=== PATIENT | female | born 1930 | race Caucasian/White ===

== ENCOUNTER 2016-11-28 07:51 | Inpatient (IN) | payer MEDICARE, BC ==
[2016-11-07 10:37] VITALS: Ht 152.4 cm; Wt 59.4 kg
[2016-11-07 10:59] VITALS: BP_SYST 134; RESP 20; TEMP 98.2
[~2016-11-28] VITALS: Ht 152.4 cm; Wt 59.4 kg
[2016-11-28] VITALS (19 sets, daily range): BP systolic 91–159; RESP 12–20; TEMP 97.3–99.1
[2016-11-28] MEDS ORDERED: ROPIVACAINE 0.5% 139 MG, EPINEPHrine 1:1,000 0.2 MG, KETOROLAC INJ 30 MG, MORPHINE 10 MG SUBQ ONE ×4 (07:55)
[2016-11-28] MEDS ORDERED: CEFAZOLIN 2,000 MG in SODIUM CHLORIDE 0.9% 100 ML IV ONE (07:55)
[2016-11-28] MEDS ORDERED: LIDOCAINE 1% BUFFERED 1 ML SYR INTRADERM PRN (08:25)
[2016-11-28] MEDS ORDERED: MIDAZOLAM 2 MG/2 ML INJ IV ONE (08:25)
[2016-11-28] MEDS ORDERED: GLYCOPYRROLATE 0.2 MG/ML VIAL IV ONE ×2 (08:25→13:44)
[2016-11-28] MEDS ORDERED: SODIUM CHLORIDE 0.9% 1,000 ML IV SCH (08:25)
[2016-11-28] MEDS ORDERED: ONDANSETRON 4 MG VIAL IV PRN ×2 (09:50→11:40)
[2016-11-28] MEDS ORDERED: MORPHINE 4 MG/ML SYR IV PRN ×2 (09:50→11:40)
[2016-11-28] MEDS ORDERED: DILAUDID 1 MG/ML AMP IV PRN (09:50)
[2016-11-28] MEDS ORDERED: MORPHINE 2 MG/ML SYR IV PRN ×2 (09:50→11:40)
[2016-11-28] MEDS ORDERED: OXYCODONE 5 MG TAB PO PRN (09:50)
[2016-11-28] MEDS ORDERED: MEPERIDINE 25 MG/ML IV PRN (09:50)
[2016-11-28] MEDS ORDERED: KETOROLAC 30 MG/ML VIAL IV PRN (11:40)
[2016-11-28] MEDS ORDERED: TEMAZEPAM 15 MG CAP PO PRN (11:40)
[2016-11-28] MEDS ORDERED: DIPHENHYDRAMINE 25 MG CAP PO PRN (11:40)
[2016-11-28] MEDS: MAG HYDROX 30 ML UDC PO SCH (13:13)
[2016-11-28] MEDS: POLYETHYLENE GLYCOL 17 GM PACKET PO SCH (13:13)
[2016-11-28] MEDS: DOCUSATE SOD 100 MG CAP PO SCH ×2 (13:13→21:26)
[2016-11-28] MEDS: SENNA 8.6 MG TAB PO SCH ×2 (13:14→21:25)
[2016-11-28] MEDS: LACT RINGERS 1,000 ML IV SCH (13:36)
[2016-11-28] MEDS ORDERED: BACITRACIN 50,000 UNITS INJ IRRIG ONE (13:39)
[2016-11-28] MEDS ORDERED: NEOSTIGMINE 10 MG/10 ML VIAL IV ONE (13:44)
[2016-11-28] MEDS ORDERED: FENTANYL 100 MCG/2 ML AMP IV ONE (13:44)
[2016-11-28] MEDS ORDERED: ACETAMINOPHEN 1,000 MG/100 ML IV ONE (13:44)
[2016-11-28] MEDS ORDERED: PROPOFOL 20 ML PER ML IV ONE (13:44)
[2016-11-28] MEDS ORDERED: LIDOCAINE 2% SYR 5 ML IV ONE (13:44)
[2016-11-28] MEDS ORDERED: ROCURONIUM 50 MG VIAL IV ONE (13:44)
[2016-11-28] MEDS ORDERED: DILAUDID 1 MG/ML AMP IV ONE (13:44)
[2016-11-28] MEDS: CEFAZOLIN 2,000 MG in SODIUM CHLORIDE 0.9% 100 ML IV SCH ×2 (16:28→21:27)
[2016-11-28] MEDS ORDERED: DEXTROSE 50% SYRINGE 50 ML IV PRN (17:30)
[2016-11-28] MEDS ORDERED: GLUCAGON 1 MG VIAL IM PRN (17:30)
[2016-11-28] MEDS ORDERED: DOCUSATE SOD 100 MG CAP PO SCH (21:00)
[2016-11-28] MEDS: FAMOTIDINE 20 MG INJ IV SCH (21:26)
[2016-11-29] VITALS (7 sets, daily range): BP systolic 126–148; RESP 16–20; TEMP 97.2–99.2
[2016-11-29] MEDS: LACT RINGERS 1,000 ML IV SCH (02:36)
[2016-11-29] MEDS: KETOROLAC 15 MG/ML VIAL IV PRN ×3 (02:37→23:01)
[2016-11-29] MEDS: CEFAZOLIN 2,000 MG in SODIUM CHLORIDE 0.9% 100 ML IV SCH ×2 (03:33→12:12)
[2016-11-29] MEDS: ENOXAPARIN 40 MG/0.4 ML SYR SUBQ SCH (05:55)
[2016-11-29] MEDS: SENNA 8.6 MG TAB PO SCH ×2 (08:50→20:05)
[2016-11-29] MEDS: DOCUSATE SOD 100 MG CAP PO SCH ×2 (08:50→20:05)
[2016-11-29] MEDS: MAG HYDROX 30 ML UDC PO SCH ×2 (08:51→20:04)
[2016-11-29] MEDS: POLYETHYLENE GLYCOL 17 GM PACKET PO SCH (08:51)
[2016-11-29] MEDS: FAMOTIDINE 20 MG INJ IV SCH ×2 (08:51→20:04)
[2016-11-29] MEDS ORDERED: OXYCODONE/APAP 5/325 TAB PO PRN (08:55)
[2016-11-29] MEDS ORDERED: ERGOCALCIFEROL 50,000 UNITS (1.25 MG) CAP PO SCH (09:00)
[2016-11-29] MEDS: CYANOCOBALAMIN 1000 MCG/ML VIAL IM SCH (12:12)
[2016-11-29] MEDS ORDERED: FLEET ENEMA 132 ML BTL RECTAL PRN (12:35)
[2016-11-29] MEDS ORDERED: BISACODYL 10 MG SUPP RECTAL PRN (12:35)
[2016-11-29] MEDS: ACETAMINOPHEN 325 MG TAB PO PRN ×2 (13:45→20:06)
[2016-11-30 04:26] VITALS: BP_SYST 127; TEMP 98.6
[2016-11-30 04:27] VITALS: RESP 18
[2016-11-30] MEDS: ENOXAPARIN 40 MG/0.4 ML SYR SUBQ SCH (06:09)
[2016-11-30 07:25] VITALS: BP_SYST 138; RESP 18; TEMP 98.7
[2016-11-30] MEDS: MAG HYDROX 30 ML UDC PO SCH ×2 (08:00→09:12)
[2016-11-30] MEDS: POLYETHYLENE GLYCOL 17 GM PACKET PO SCH (09:11)
[2016-11-30] MEDS: SENNA 8.6 MG TAB PO SCH (09:11)
[2016-11-30] MEDS: DOCUSATE SOD 100 MG CAP PO SCH (09:11)
[2016-11-30] MEDS: CYANOCOBALAMIN 1000 MCG/ML VIAL IM SCH (09:11)
[2016-11-30] MEDS: FAMOTIDINE 20 MG INJ IV SCH (09:11)
[2016-11-30] MEDS: ACETAMINOPHEN 325 MG TAB PO PRN (10:19)
[2016-11-30 10:29] VITALS: BP_SYST 138; RESP 18; TEMP 98.7
== END 2016-11-30 11:51 | disposition home health service (06) | DRG 470 ==
LOC: ENRESERVDT → ENRESERVTM → ENPENDDIS 07:51 → SDS 07:51 → 2NO 12:23
PROVIDERS: ADMIT Internal Medicine; ATTEND Internal Medicine
PROC: 0SRB049 Replacement of Left Hip Joint with Ceramic on Polyethylene Synthetic Substitute, Cemented, Open Approach (ICD-10-PCS; principal; 2016-11-29)
CPT/HCPCS: 76000; 80048; 80053; 82306; 82607; 82746; 82947; 83036; 83735; 84439; 84443; 85025; 86850; 86900; 86901; 94762; 94799